=== PATIENT | female | born 1955 | race American Indian/Alaskan Native ===

== ENCOUNTER 2016-10-23 01:03 | Emergency (ER) | payer MEDICARE, OTHER ==
[2016-10-23 01:03] VITALS: BMI 27.4
--- NOTE | 2016-10-23 02:18 | ED PDOC ---
HPI: Seizure Time Seen by Provider: 10/23/16 01:16 Chief Complaint (Nursing): Seizure Chief Complaint (Provider): seizure History Per: Patient History/Exam Limitations: no limitations Additional History Per: Patient Additional Complaint(s): 61 yo f with a brain mass, seizures (diagnosed 2 wks ago, on keppra), hep c, htn dm presented with seizure tonight. as per pts daughter pt was resting and then woke up shaking, with eyes fluttering. unclear if pt was awake or asleep during that time. no fever, recent illnesses. no vomiting or pain at this time. Past Medical History Vital Signs: Last Vital Signs Temp 98 F 10/23/16 01:17 Pulse 64 10/23/16 01:17 Resp 16 10/23/16 01:17 BP 135/74 10/23/16 01:17 Pulse Ox 99 10/23/16 01:17 - Medical History PMH: Anxiety, Arthritis, Asthma, COPD, Dementia (as per pt.), Depression, Diabetes, Gastritis, GERD, Hepatitis, HTN, Hypercholesterolemia, Seizures (this admission), Chronic Pain (neck and back) Denies: Anemia, Chronic Kidney Disease Comment Only: HIV (unable to assess) - Surgical History Surgical History: Back Surgery, Cholecystectomy Denies: Pacemaker - Family History Family History: States: Unknown Family Hx - Social History Current smoker - smoking cessation education provided: No Ex-Smoker (has not smoked in the last 12 months): Yes Alcohol: Occasional Drugs: Other (ex drug user) - Immunization History Hx Tetanus Toxoid Vaccination: No Hx Influenza Vaccination: Yes Hx Pneumococcal Vaccination: Yes - Home Medications Home Medications: Ambulatory Orders Medication Instructions Recorded Ciprofloxacin [Cipro] 500 mg PO Q12 #6 tab 10/18/16 Losartan [Cozaar] 50 mg PO DAILY #30 tab 10/18/16 Pantoprazole [Protonix EC Tab] 40 mg PO DAILY #30 ect 10/18/16 amLODIPine [Norvasc] 10 mg PO DAILY #30 tab 10/18/16 cloNIDine [Catapres] 0.1 mg PO BID #60 tab 10/18/16 levETIRAcetam [Keppra] 500 mg PO BID #60 tab 10/18/16 - Allergies Allergies/Adverse Reactions: Allergies Allergy/AdvReac Type Severity Reaction Status Date / Time No Known Allergies Allergy Verified 10/10/16 10:26 Review of Systems ROS Statement: Except As Marked, All Systems Reviewed And Found Negative Neurological: Positive for: Seizures Physical Exam - Reviewed Nursing Documentation Reviewed: Yes Vital Signs Reviewed: Yes - Physical Exam Appears: Positive for: Well, Non-toxic, No Acute Distress Head Exam: Positive for: ATRAUMATIC, NORMAL INSPECTION, NORMOCEPHALIC Skin: Positive for: Normal Color, Warm, DRY Eye Exam: Positive for: Normal appearance ENT: Positive for: Normal ENT Inspection Neck: Positive for: Normal, Painless ROM Cardiovascular/Chest: Positive for: Regular Rate, Rhythm Respiratory: Positive for: CNT, Normal Breath Sounds Gastrointestinal/Abdominal: Positive for: Normal Exam, Bowel Sounds, Soft Back: Positive for: Normal Inspection Extremity: Positive for: Normal ROM Neurologic/Psych: Positive for: Alert, Oriented Medical Decision Making Medical Decision Making: nurses attempted blood draw and IV multiple times to no avail i attempted. Dr Antonio attempted. finally pt refused all further bloodwork and wants to AMA. pt understands risks of AMA. pt alert and oriented X 3. Patient Left Against Medical Advice: The patient declines admission to the hospital and wishes to leave the Emergency Department. This action is against my medical advice. This decision was made with informed refusal. The patient was told that admission to the hospital is necessary. Explanation of the reasons why were discussed. The risks of leaving were explained to the patient and include, but are not limited to, worsening of known or currently unknown conditions, permanent disability and from undiagnosed or untreated conditions. The patient has the capacity to make this informed decision and understands my explanation of the current medical problem and risks of leaving. The patient voluntarily accepts these risks and signed an AMA form documenting our conversation. The patient was given the opportunity to ask questions and reconsider. The patient was encouraged to return to the Emergency Department at any time for further care. discussed iwth patient and need to stay in hospital lawrence schwazr wants to sign out AMA Disposition - Clinical Impression Clinical Impression: Seizure disorder, Left against medical advice - Patient ED Disposition Is Patient to be Admitted: No Counseled Patient/Family Regarding: Studies Performed, Diagnosis - Disposition Disposition: Against Medical Advice Disposition Time: 02:00 Condition: STABLE Additional Instructions: follow up with your primary doctor tomorrow. return to the ED with any worsening or concerning symptoms. Instructions: Epilepsy (ED), Against Medical Advice (ED)
[2016-10-23 03:16] VITALS: BP 135/74; PULSE 64; RESP 16; TEMP 98; O2SAT 99
[2016-10-23] MEDS ORDERED: Lidocaine 1% Inj (20ml) ONE (03:35)
[2016-10-23 03:36] LABS: RBC URINE < 1 /hpf (0-3); URINE BACTERIA RARE (<OCC); URINE BILIRUBIN NEGATIVE (NEGATIVE); URINE BLOOD NEGATIVE (NEGATIVE); URINE COLOR STRAW (YELLOW); URINE GLUCOSE (UA) NEG (Normal); URINE KETONE NEGATIVE (NEGATIVE); URINE LEUKOCYTE ESTERASE NEG Leu/uL (Negative); URINE PROTEIN NEGATIVE (NEGATIVE); URINE UROBILINOGEN 0.2-1.0 mg/dL (0.2-1.0); WBC URINE 1 /hpf (0-5)
== END 2016-10-23 04:45 | disposition left against medical advice (07) ==
LOC: H.ER 01:03
DX: G40.909 Epilepsy, unspecified, not intractable, without status epilepticus (principal); E11.9 Type 2 diabetes mellitus without complications; E78.00 Pure hypercholesterolemia, unspecified; F03.90 Unspecified dementia, unspecified severity, without behavioral disturbance, psychotic disturbance, mood disturbance, and anxiety; I10 Essential (primary) hypertension; B19.20 Unspecified viral hepatitis C without hepatic coma

== ENCOUNTER 2016-10-30 22:33 | Observation (INO) | payer MEDICARE, OTHER ==
[2016-10-30 22:33] VITALS: BMI 27.4
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
[2016-10-31] MEDS ORDERED: Sterile Water 10 ML IV ONE (01:52)
[2016-10-31 03:53] LABS: ALCOHOL SERUM < 10 mg/dl (0-10); ALKALINE PHOSPHATASE 57 U/L (38-126); ALT/SGPT 49 U/L (9-52); AST/SGOT 42 U/L (14-36); BILIRUBIN,TOTAL 0.5 mg/dl (0.2-1.3); BLOOD UREA NITROGEN 14 mg/dl (7-17); CALCIUM 9.7 mg/dL (8.4-10.2); CARBON DIOXIDE 24 mmol/L (22-30); CHLORIDE 110 mmol/L (98-107); GFR AFRICAN-AMERICAN > 60; GLUCOSE,RANDOM 88 mg/dL (65-105); POTASSIUM 3.3 MMOL/L (3.6-5.0); SODIUM 141 mmol/l (132-148); TOTAL PROTEIN 7.2 G/DL (6.3-8.2)
[2016-10-31 04:29] LABS: BASO # 0.1 K/uL (0.0-0.2); BASO % 1.4 % (0.0-2.0); EOS # 0.2 K/uL (0.0-0.7); EOS % 2.1 % (0.0-4.0); HEMATOCRIT 35.7 % (34.0-47.0); LYMPH # 5.2 K/uL (1.0-4.3); LYMPH % 54.9 % (20.0-40.0); MEAN CELL VOLUME 86.6 fl (81.0-99.0); MEAN CORPUSCULAR HEMOGLOBIN 28.3 pg (27.0-31.0); MEAN CORPUSCULAR HGB CONC 32.7 g/dL (33.0-37.0); MEAN PLATELET VOLUME 9.3 fl (7.2-11.7); MONO # 0.6 K/uL (0.0-0.8); MONO % 6.3 % (0.0-10.0); NEUT # 3.3 K/uL (1.8-7.0); NEUT % 35.3 % (50.0-75.0); NRBC % 0.1 % (0.0-0.0); RED CELL DISTRIBUTION WIDTH 16.2 % (11.5-14.5); WHITE BLOOD COUNT 9.5 K/uL (4.8-10.8)
[2016-10-31 04:36] LABS: RBC URINE 3 /hpf (0-3); URINE BACTERIA MOD (<OCC); URINE BILIRUBIN NEGATIVE (NEGATIVE); URINE BLOOD NEGATIVE (NEGATIVE); URINE COLOR YELLOW (YELLOW); URINE GLUCOSE (UA) NEG (Normal); URINE KETONE NEGATIVE (NEGATIVE); URINE LEUKOCYTE ESTERASE LARGE Leu/uL (Negative); URINE PROTEIN NEGATIVE (NEGATIVE); URINE UROBILINOGEN 0.2-1.0 mg/dL (0.2-1.0); WBC URINE 92 /hpf (0-5)
[2016-10-31] MEDS ORDERED: Potassium Chloride 20 mEq ER Tab PO ONE ×2 (04:51→06:04)
--- NOTE | 2016-10-31 08:19 | CARD ---
APPROVED REPORT EKG Measurement Heart [id number] AR [id number] <Conclusion> Normal sinus rhythm Low voltage QRS T wave abnormality, consider inferolateral ischemia Abnormal ECG
--- NOTE | 2016-10-31 08:19 | CARD ---
APPROVED REPORT EKG Measurement Heart [id number] ND [id number] <Conclusion> Normal sinus rhythm T wave abnormality, consider inferior ischemia Abnormal ECG
--- NOTE | 2016-10-31 13:20 | RAD ---
HISTORY: clearance COMPARISON: 10/15/2016 FINDINGS: LUNGS: No active pulmonary disease. PLEURA: No significant pleural effusion identified, no pneumothorax apparent. CARDIOVASCULAR: Normal. OSSEOUS STRUCTURES: No significant abnormalities. VISUALIZED UPPER ABDOMEN: Normal. OTHER FINDINGS: None. IMPRESSION: No active disease.
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
--- NOTE | 2016-10-31 14:21 | CON ---
DATE: 10/31/2016 REASON FOR CONSULTATION: Abnormal EKG. The patient is a 61-year-old -Malag[place] female who has history of hypertension, history of psyc h disorder, history of midbrain lesion diagnosed on a brain MRI which was proven not to be an aneurys m. She was admitted because of abnormal behavior reported by her daughter. EKG was consistent with inferolateral ischemia and the patient was admitted to telemetry. The patient denies any chest pain or shortness of breath and is unaware of any prior cardiac history in the past. SOCIAL HISTORY: The patient is a nonsmoker. She lives with her daughter. MEDICATIONS: Clonidine 0.1 mg twice a day, Rocephin 1 gram intravenously daily, Cozaar 50 mg daily, Keppra 500 mg twice a day, Norvasc 10 mg once a day, Protonix 40 mg p.o. once a day. REVIEW OF SYSTEMS: No fever or chills. No vomiting or diarrhea. No headache or blurry vision. PHYSICAL EXAMINATION: GENERAL: The patient is a middle-aged female who does not appear to be in acute distress. VITAL SIGNS: Blood pressure 130/72, heart rate 62, temperature 98.2, respiration 19. HEENT: Normocephalic. NECK: No JVD. CHEST: Clear. HEART: S1, S2 regular. EXTREMITIES: No edema. LABORATORIES: Urine drug screen is negative. Alcohol level is below 10. SMA-7: Sodium 141, potass ium 3.3, chloride 110, CO2 24, glucose 88, BUN 14, creatinine 0.6. One set of troponin is negative. CBC: WBC 9.5, hemoglobin 11.7, hematocrit 35.7, platelet count 305,000. Two EKGs revealed sinus rhythm with inferolateral ischemic T-wave inversion. Chest x-ray was unremar kable. Brain MRI on 10/16 revealed redemonstration of well-defined extraaxial 16 mm x 10 mm lesion an terior to the midbrain at the midline and to the left of the midline. This lesion demonstrated no si gnificant enhancement in the post-contrast images. Differential diagnosis is benign extraaxial cysti c lesion versus aneurysm. However, head MRA revealed no evidence of aneurysm in that lesion. ASSESSMENT: 1. Abnormal EKG with evidence of inferolateral ischemia, rule out myocardial infarction. Central ne rvous system changes cannot be completely excluded, especially in view of organic central nervous sys tem lesion. 2. Hypertension. 3. History of psych disorder. 4. Hypokalemia. RECOMMENDATIONS: The patient did receive a total of 40 mEq of KCl yesterday. Continue Norvasc at 10 mg once a day, Keppra at 500 mg twice a day, Cozaar at 50 mg once a day, IV Rocephin 1 gram daily, c lonidine 0.1 mg twice a day. Repeat SMA-7 and obtain one more set of troponin. Obtain serum D-dimer . I will follow the echocardiograph study performed today. Alcides Tamayo MD cc: [id number] TT: 10/31/2016 14:20:50 Confirmation # [id number] Dictation # [id number]
[2016-11-01 05:23] VITALS: BP 126/78; PULSE 81; RESP 18; TEMP 99.1; O2SAT 97
--- NOTE | 2016-11-01 07:36 | CARD ---
APPROVED REPORT EXAM: Two-dimensional and M-mode echocardiogram with Doppler and color Doppler. Other Information Quality : GoodRhythm : NSR INDICATION Abnormal EKG/Arrhythmia 2D DIMENSIONS IVSd1.09 (0.7-1.1cm)LVDd4.37 (3.9-5.9cm) LVOT Diameter2.07 (1.8-2.4cm)PWd1.01 (0.7-1.1cm) IVSs1.31 (0.8-1.2cm)LVDs3.00 (2.5-4.0cm) FS (%) 31.5 %PWs1.54 (0.8-1.2cm) M-Mode DIMENSIONS Left Atrium (MM)3.53 (2.5-4.0cm)IVSd1.08 (0.7-1.1cm) Aortic Root2.90 (2.2-3.7cm)LVDd5.24 (4.0-5.6cm) Aortic Cusp Exc.2.23 (1.5-2.0cm)PWd0.94 (0.7-1.1cm) IVSs1.38 cmFS (%) 29 % LVDs3.72 (2.0-3.8cm)PWs1.46 cm Mitral Valve MV E Jtdgwvdh31.8cm/sMV DECEL [id number] A Szuxuwuc91.4cm/s MV TXW20dzH/A ratio1.1MVA (PHT)4.69cm2 TDI Lateral E' Peak V12.47cm/sMedial E' Peak V8.72cm/sE/Lateral E'5.0 E/Medial E'7.1 Tricuspid Valve TR Peak Cxmlfhdd100qb/sRAP [id number] Peak Gr.18mmHg [id number] LEFT VENTRICLE The left ventricle is normal size. There is normal left ventricular wall thickness. Left ventricle systolic function is normal. The Ejection Fraction is 65-70%. There is normal LV segmental wall motion. Transmitral Doppler flow pattern is Grade I-abnormal relaxation pattern. RIGHT VENTRICLE The right ventricle is normal size. There is normal right ventricular wall thickness. The right ventricular systolic function is normal. ATRIA The left atrium size is normal. The right atrium size is normal. AORTIC VALVE The aortic valve is normal in structure and function. No aortic regurgitation is present. There is no aortic valvular stenosis. MITRAL VALVE The mitral valve is normal in structure. There is no evidence of mitral valve prolapse. There is no mitral valve stenosis. Mitral regurgitation is mild to moderate. TRICUSPID VALVE The tricuspid valve is normal in structure. There is mild tricuspid regurgitation. Right ventricular systolic pressure is estimated at 27 mmHg. There is no pulmonary hypertension. PULMONIC VALVE The pulmonary valve is normal in structure and function. There is no pulmonic valvular regurgitation. GREAT VESSELS The aortic root is normal in size. The IVC was not visualized. PERICARDIAL EFFUSION The pericardium appears normal. <Conclusion> The left ventricle is normal size. There is normal left ventricular wall thickness. There is normal LV segmental wall motion. Left ventricle systolic function is normal. The Ejection Fraction is 65-70%. Transmitral Doppler flow pattern is Grade I-abnormal relaxation pattern. Mitral regurgitation is mild to moderate. There is mild tricuspid regurgitation. There is no pulmonary hypertension.
[2016-11-01] MEDS ORDERED: Pantoprazole 40 mg EC Tab PO SCH (09:00)
== END 2016-11-01 07:07 | disposition left against medical advice (07) ==
LOC: H.ER 22:33 → H.ERHOLD 10-31 05:52 → H.TEL 10-31 09:49
PROVIDERS: ADMIT Internal Medicine Pulmonary Disease; ATTEND Internal Medicine Pulmonary Disease
DX: F20.9 Schizophrenia, unspecified (principal); F41.9 Anxiety disorder, unspecified; I10 Essential (primary) hypertension; J44.9 Chronic obstructive pulmonary disease, unspecified; E87.6 Hypokalemia; E78.00 Pure hypercholesterolemia, unspecified; E11.9 Type 2 diabetes mellitus without complications; J45.909 Unspecified asthma, uncomplicated; K21.9 Gastro-esophageal reflux disease without esophagitis; G93.9 Disorder of brain, unspecified; R94.31 Abnormal electrocardiogram [ECG] [EKG]; G89.29 Other chronic pain; R45.850 Homicidal ideations; K29.70 Gastritis, unspecified, without bleeding; M19.90 Unspecified osteoarthritis, unspecified site; F32.9 Major depressive disorder, single episode, unspecified; K75.9 Inflammatory liver disease, unspecified
CPT/HCPCS: 36415; 71010; 80053; 81003; 84484; 85025; 87086; 93005; 93306; 96372; 99285; G0378; G0480; J1630; J2060; J3485

== ENCOUNTER 2017-01-14 20:29 | Emergency (ER) | payer MEDICARE, OTHER ==
[2017-01-14 20:29] VITALS: BMI 27.4
[2017-01-14 20:34] VITALS: BP 105/76; PULSE 86; RESP 18; TEMP 98.3; O2SAT 99
--- NOTE | 2017-01-14 21:02 | ED PDOC ---
HPI: Back Time Seen by Provider: 01/14/17 20:45 Chief Complaint (Nursing): Back Pain Chief Complaint (Provider): Back pain History Per: Patient History/Exam Limitations: no limitations Onset/Duration Of Symptoms: Days Current Symptoms Are (Timing): Still Present Quality Of Discomfort: "Pain" Severity: Moderate Previous Symptoms: Back Pain Additional Complaint(s): The pt is a 61yo female with PMHx of back pain, presents to the ED for evaluation of lower extremity swelling as well as back pain. She reports visiting her PCP for these symptoms. She denies any other medical complaints. PT denies SOB, difficulty breathing, cough. Past Medical History Reviewed: Historical Data, Nursing Documentation, Vital Signs Vital Signs: Last Vital Signs Temp 98.3 F 01/14/17 20:31 Pulse 86 01/14/17 20:31 Resp 18 01/14/17 20:31 BP 105/76 01/14/17 20:31 Pulse Ox 99 01/14/17 20:31 - Medical History PMH: Anxiety, Arthritis, Asthma, Back Problems, COPD, Dementia, Depression, Diabetes, Gastritis, GERD, Hepatitis, HTN, Hypercholesterolemia, Schizophrenia, Seizures, Chronic Pain (neck and back) Denies: Anemia, Chronic Kidney Disease Comment Only: HIV (unable to assess) - Surgical History Surgical History: Back Surgery, Cholecystectomy Denies: Pacemaker - Family History Family History: States: Unknown Family Hx - Immunization History Hx Tetanus Toxoid Vaccination: No Hx Influenza Vaccination: Yes Hx Pneumococcal Vaccination: Yes - Home Medications Home Medications: Ambulatory Orders Medication Instructions Recorded Losartan [Cozaar] 50 mg PO DAILY #30 tab 10/18/16 Pantoprazole [Protonix EC Tab] 40 mg PO DAILY #30 ect 10/18/16 amLODIPine [Norvasc] 10 mg PO DAILY #30 tab 10/18/16 cloNIDine [Catapres] 0.1 mg PO BID #60 tab 10/18/16 levETIRAcetam [Keppra] 500 mg PO BID #60 tab 10/18/16 Ciprofloxacin [Cipro] 500 mg PO BID #14 tab 12/18/16 Phenazopyridine HCl [Pyridium] 100 mg PO TID #6 tab 12/18/16 - Allergies Allergies/Adverse Reactions: Allergies Allergy/AdvReac Type Severity Reaction Status Date / Time No Known Allergies Allergy Verified 03/02/17 10:26 Review of Systems ROS Statement: Except As Marked, All Systems Reviewed And Found Negative Musculoskeletal: Positive for: Back Pain, Other (lower extremity swelling) Physical Exam - Reviewed Nursing Documentation Reviewed: Yes Vital Signs Reviewed: Yes - Physical Exam Appears: Positive for: Well, No Acute Distress Head Exam: Positive for: ATRAUMATIC, NORMAL INSPECTION, NORMOCEPHALIC Skin: Positive for: Normal Color Eye Exam: Positive for: Normal appearance ENT: Positive for: Normal ENT Inspection Neck: Positive for: Normal Respiratory: Positive for: Normal Breath Sounds. Negative for: Decreased Breath Sounds, Accessory Muscle Use, Respiratory Distress Gastrointestinal/Abdominal: Positive for: Normal Exam, Bowel Sounds, Soft Back: Positive for: Normal Inspection Extremity: Positive for: Pedal Edema (b/l lower leg edema noted). Negative for : Deformity Neurologic/Psych: Positive for: Alert, Oriented - ECG O2 Sat by Pulse Oximetry: 99 Medical Decision Making Medical Decision Making: Time: 2100 Impression: Chronic back pain; leg swelling Plan: -- US Doppler Scribe Attestation: Documented by Velma Serna, acting as a scribe for LUIS Leon Provider Attestation: All medical record entries made by the Scribe were at my direction and personally dictated by me. I have reviewed the chart and agree that the record accurately reflects my personal performance of the history, physical exam, medical decision making, and the department course for this patient. I have also personally directed, reviewed, and agree with the discharge instructions and disposition. Disposition - Clinical Impression Clinical Impression: Lower extremity edema - Patient ED Disposition Is Patient to be Admitted: No Counseled Patient/Family Regarding: Diagnosis, Need For Followup - Disposition Referrals: [facility] [Outside] Disposition: Routine/Home Disposition Time: 22:18 Condition: GOOD Instructions: Leg Edema (ED)
--- NOTE | 2017-01-14 22:11 | US ---
EXAM: US Duplex Bilateral Lower Extremity Veins CLINICAL HISTORY: 61 years old, female; Signs and symptoms; Edema, localized; Lower extremity, bilateral; Additional info: Lower leg edema TECHNIQUE: Real-time ultrasound scan of the veins of the bilateral lower extremities with color Doppler flow, spectral waveform analysis and compression. COMPARISON: No relevant prior studies available. FINDINGS: Right deep veins: Normal color and spectral Doppler flow. Normal compressibility. No deep vein thrombosis from common femoral to popliteal vein. Right superficial veins: Unremarkable. Left deep veins: Normal color and spectral Doppler flow. Normal compressibility. No deep vein thrombosis from common femoral to popliteal vein. Left superficial veins: Unremarkable. Soft tissues: No popliteal cyst. IMPRESSION: 1. No evidence of DVT within the lower extremities. 2. Incidental/non-acute findings are described above.
== END 2017-01-15 00:04 | disposition home or self-care (01) ==
LOC: H.ER 20:29
DX: R60.0 Localized edema (principal); M54.9 Dorsalgia, unspecified; E11.9 Type 2 diabetes mellitus without complications; E78.00 Pure hypercholesterolemia, unspecified; F03.90 Unspecified dementia, unspecified severity, without behavioral disturbance, psychotic disturbance, mood disturbance, and anxiety; F20.9 Schizophrenia, unspecified; F32.9 Major depressive disorder, single episode, unspecified; F41.9 Anxiety disorder, unspecified; G89.29 Other chronic pain; I10 Essential (primary) hypertension; J44.9 Chronic obstructive pulmonary disease, unspecified; J45.909 Unspecified asthma, uncomplicated; K21.9 Gastro-esophageal reflux disease without esophagitis

== ENCOUNTER 2017-09-15 12:21 | Emergency (ER) | payer MEDICARE, OTHER ==
[2017-09-15 12:22] VITALS: BMI 27.8
[2017-09-15] MEDS: DiphenhydrAMINE 50 mg/ml Inj IVP STA ×2 (15:21→16:55)
[2017-09-15] MEDS ORDERED: DiphenhydrAMINE 50 mg/ml Inj ONE (15:21)
--- NOTE | 2017-09-15 15:30 | ED PDOC ---
HPI: Headache Time Seen by Provider: 09/15/17 13:58 Chief Complaint (Nursing): Headache Chief Complaint (Provider): Headache History Per: Patient History/Exam Limitations: no limitations Onset/Duration Of Symptoms: Days (x4 days), Gradual Current Symptoms Are (Timing): Still Present Additional Complaint(s): 62 y/o female presents to the ED complaining of headache x 4 days. It was a gradual onset and pain is described as aching. Patient notes that it is similar to the previous headaches. She took Motrin last night without relief. Reports chronic right lower back pain and leg pain. Also reports tumor in brain. Denies fever, cough, congestion, or any further medical complaints. PMD: Mikie Soria MD Past Medical History Reviewed: Historical Data, Nursing Documentation, Vital Signs Vital Signs: Last Vital Signs Temp 97.8 F 09/15/17 12:54 Pulse 78 09/15/17 12:54 Resp 16 09/15/17 12:54 BP 119/72 09/15/17 12:54 Pulse Ox 100 09/15/17 12:54 - Medical History PMH: Anxiety, Arthritis, Asthma, Back Problems, COPD, Dementia, Depression, Emphysema, Gastritis, GERD, HTN, Hypercholesterolemia, Schizophrenia, Seizures, Chronic Pain (neck and back) Denies: Anemia, Diabetes, Hepatitis, HIV, Chronic Kidney Disease, Sexually Transmitted Disease - Surgical History Surgical History: Appendectomy, Back Surgery, Cholecystectomy Denies: Pacemaker - Family History Family History: States: Unknown Family Hx - Immunization History Hx Tetanus Toxoid Vaccination: Yes Hx Influenza Vaccination: Yes Hx Pneumococcal Vaccination: Yes - Home Medications Home Medications: Ambulatory Orders Medication Instructions Recorded Losartan [Cozaar] 50 mg PO DAILY #30 tab 10/18/16 cloNIDine [Catapres] 0.1 mg PO BID #60 tab 10/18/16 metFORMIN [glucOPHAGE] 500 mg PO BID 07/28/17 Gabapentin [Neurontin] 300 mg PO BID #60 cap 08/03/17 Pantoprazole [Protonix EC Tab] 20 mg PO DAILY #30 ect 08/03/17 amLODIPine [Norvasc] 10 mg PO DAILY #30 tab 08/03/17 Acetaminophen/Butalbital/Caf 1 tab PO TID PRN #21 tab 09/13/17 [Fioricet] Ibuprofen [Motrin] 600 mg PO Q6 PRN 09/13/17 - Allergies Allergies/Adverse Reactions: Allergies Allergy/AdvReac Type Severity Reaction Status Date / Time No Known Allergies Allergy Verified 09/13/17 17:23 Review of Systems ROS Statement: Except As Marked, All Systems Reviewed And Found Negative (As per HPI, otherwise negative) Constitutional: Negative for: Fever ENT: Negative for: Nose Congestion Respiratory: Negative for: Cough Musculoskeletal: Positive for: Back Pain (Right lower back pain), Leg Pain Neurological: Positive for: Headache Physical Exam - Reviewed Nursing Documentation Reviewed: Yes Vital Signs Reviewed: Yes - Physical Exam Appears: Positive for: Well, Non-toxic, No Acute Distress Head Exam: Positive for: ATRAUMATIC, NORMAL INSPECTION, NORMOCEPHALIC Skin: Positive for: Normal Color, Warm, Dry Eye Exam: Positive for: EOMI, Normal appearance, PERRL ENT: Positive for: Normal ENT Inspection Neck: Positive for: Normal, Painless ROM, Supple Cardiovascular/Chest: Positive for: Regular Rate, Rhythm. Negative for: Murmur Respiratory: Positive for: Normal Breath Sounds. Negative for: Accessory Muscle Use, Respiratory Distress Gastrointestinal/Abdominal: Positive for: Normal Exam, Soft Back: Positive for: Other (Lower lumbar tenderness) Extremity: Positive for: Normal ROM. Negative for: Deformity, Swelling Neurologic/Psych: Positive for: Alert, Oriented. Negative for: Motor/Sensory Deficits, Other (Sinus or temporal tenderness) - Laboratory Results Result Diagrams: 09/15/17 16:39 - ECG O2 Sat by Pulse Oximetry: 100 (RA) Pulse Ox Interpretation: Normal Medical Decision Making Medical Decision Making: Time: 14:43 Initial Impression: Chronic headache r/o worsening brain mass; Chronic lower back pain r/o msk vs sciatica Plan: CT head w/o contrast BMP Magnesium CBC w/ differential Acetaminophen 650mg PO Diphenhydramine 25mg IVP PROCEDURE: CT HEAD WITHOUT CONTRAST. IMPRESSION: No acute intracranial hemorrhage. Minor chronic white matter ischemic changes. . Previously described elliptical shaped soft tissue mass within the pre - medullary/inferior pre-pontine subarachnoid space which was seen extending more so to the left side on prior CT scan and MRI not appreciated on this exam due to poor patient positioning. Minor chronic periventricular and scattered deep/ subcortical white matter ischemic changes less well seen on this exam as compared to prior MRI. Moderate generalized volume loss. 5:48 - Toradol IM and Fiorcet ordered for headache. Signed out to Dr. Brown to reevaluate and disposition. Scribe Attestation: Documented by Antelmo Shell acting as a scribe for Gunnar Ochoa MD. Scribe Attestation: All medical record entries made by the Scribe were at my direction and personally dictated by me. I have reviewed the chart and agree that the record accurately reflects my personal performance of the history, physical exam, medical decision making, and the department course for this patient. I have also personally directed, reviewed, and agree with the discharge instructions and disposition. Disposition - Clinical Impression Clinical Impression: Headache - Disposition Disposition Time: 17:49 Condition: FAIR Forms: [employer] (Beninese)
--- NOTE | 2017-09-15 16:15 | CT ---
PROCEDURE: CT HEAD WITHOUT CONTRAST. HISTORY: Headache; ; h/o tumor COMPARISON: No comparison made with prior CT scan brain dated 12/28/2016. Comparison also made with prior MRI/ MRA brain dated 10/16/2016 and 10/17/2016 respectively. TECHNIQUE: Axial computed tomography images were obtained through the head/brain without intravenous contrast. Radiation dose: Total exam DLP = 886.13 mGy-cm. This CT exam was performed using one or more of the following dose reduction techniques: Automated exposure control, adjustment of the mA and/or kV according to patient size, and/or use of iterative reconstruction technique. FINDINGS: HEMORRHAGE: No acute parenchymal, subarachnoid or extra-axial hemorrhage. Hemorrhage. BRAIN: Previously described elliptical shaped soft tissue mass within the pre -medullary/inferior pre-pontine subarachnoid space which was seen extending more so to the left side on prior CT scan and MRI not appreciated on this exam due to poor patient positioning. Minor chronic periventricular and scattered deep/ subcortical white matter ischemic changes less well seen on this exam as compared to prior MRI. Moderate generalized volume loss. VENTRICLES: No obstructive hydrocephalus. CALVARIUM: There are no acute calvarial fractures. PARANASAL SINUSES: The visualized paranasal air complexes are well-developed and currently well-aerated so far as can be seen. MASTOID AIR CELLS: Unremarkable as visualized. No inflammatory changes. OTHER FINDINGS: None. IMPRESSION: No acute intracranial hemorrhage. Minor chronic white matter ischemic changes. . Previously described elliptical shaped soft tissue mass within the pre -medullary/inferior pre-pontine subarachnoid space which was seen extending more so to the left side on prior CT scan and MRI not appreciated on this exam due to poor patient positioning. Minor chronic periventricular and scattered deep/ subcortical white matter ischemic changes less well seen on this exam as compared to prior MRI. Moderate generalized volume loss.
[2017-09-15] MEDS ORDERED: DiphenhydrAMINE 50 mg/ml Inj IM STA (16:33)
[2017-09-15 17:02] LABS: BASO # 0.1 K/uL (0.0-0.2); BASO % 0.9 % (0.0-2.0); EOS # 0.3 K/uL (0.0-0.7); HEMOGLOBIN 13.3 g/dL (12.0-16.0); LYMPH # 5.5 K/uL (1.0-4.3); LYMPH % 48.2 % (20.0-40.0); MEAN CELL VOLUME 87.9 fl (81.0-99.0); MEAN CORPUSCULAR HEMOGLOBIN 28.5 pg (27.0-31.0); MEAN CORPUSCULAR HGB CONC 32.4 g/dL (33.0-37.0); MEAN PLATELET VOLUME 9.6 fl (7.2-11.7); MONO # 0.7 K/uL (0.0-0.8); MONO % 6.5 % (0.0-10.0); NEUT # 4.7 K/uL (1.8-7.0); NEUT % 41.4 % (50.0-75.0); NRBC % 0.3 % (0.0-0.0); RBC 4.67 Mil/uL (3.80-5.20); RED CELL DISTRIBUTION WIDTH 15.4 % (11.5-14.5); WHITE BLOOD COUNT 11.4 K/uL (4.8-10.8)
[2017-09-15] MEDS ORDERED: Apap-Butalbital-Caffeine 325-50-40mg Tab PO STA (17:48)
[2017-09-15] MEDS ORDERED: Apap-Butalbital-Caffeine 325-50-40mg Tab ONE (18:02)
--- NOTE | 2017-09-15 18:09 | ED PDOC ---
- Laboratory Results Result Diagrams: 09/15/17 16:39 - ECG O2 Sat by Pulse Oximetry: 100 (RA) Medical Decision Making Medical Decision Makinp Rec'd endorsement from Dr Ochoa. Pt with headache. Unremarkable workup. Pending improvement with meds. 6p Pt eager to go home after toradol and fioricet. Stable for discharge. Disposition Counseled Patient/Family Regarding: Studies Performed, Diagnosis, Need For Followup, Rx Given - Clinical Impression Clinical Impression: Headache - POA Present On Arrival: None - Disposition Disposition: Routine/Home Disposition Time: 18:06 Condition: STABLE Additional Instructions: TAKE TORADOL (KETORELAC) NEEDED FOR HEADACHE. (DO NOT TAKE IBUPROFEN WHILE TAKING THIS MEDICATION.) IF HEADACHE PERSISTS, YOU CAN ADD FIORICET (PREVIOUSLY PRESCRIBED). Prescriptions: Ketorolac Tromethamine [Toradol] 10 mg PO Q8 PRN #30 tab PRN Reason: headache Instructions: General Headache (ED)
[2017-09-15 18:19] VITALS: BP 132/67; PULSE 76; RESP 18; TEMP 98; O2SAT 99
== END 2017-09-15 18:19 | disposition home or self-care (01) ==
LOC: H.ER 12:21
DX: R51 Headache (principal); F03.90 Unspecified dementia, unspecified severity, without behavioral disturbance, psychotic disturbance, mood disturbance, and anxiety; E78.00 Pure hypercholesterolemia, unspecified; Z79.84 Long term (current) use of oral hypoglycemic drugs
CPT/HCPCS: 70450; 85025; 96372; 99283; J1200; J1885